=== PATIENT | female | born 1985 | race Caucasian/White ===

== ENCOUNTER 2019-03-04 16:50 | Emergency (ER) | payer OTHER ==
[~2019-03-04] VITALS: Ht 170.2 cm; Wt 87.8 kg
--- NOTE | 2019-03-04 16:53 | NUR ---
NO ANSWER WHEN PT WAS CALLED FOR TRIAGE @ [id number]
--- NOTE | 2019-03-04 17:53 | NUR ---
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 RESPONDED TO STERNAL RUB, LOCALIZED PAIN. PT MIN ASSISTANCE GETTING INTO W/C. PT TO ROOM VIA W/C
--- NOTE | 2019-03-04 18:04 | NUR ---
PT TAKEN FROM [facility] TO ROOM 25. PER SECURITY PT SLID DOWN TO THE GROUND FROM WHEELCHAIR ON TO SHOULDER. PT APPEARS ANXIOUS. PT REPORTS SHE [facility] AND WAS TOLD SHE HAS STYES IN HER EYES AND SHE HAS BLURRED VISION. VS STABLE. MANAGER PROVIDER RELATIONS ON. DR VALIENTE IN ROOM WITH PATIENT. CALL LIGHT IN PLACE. WILL CONTINUE TO MONITOR.
[2019-03-04 18:32] LABS: BASOPHILS # (AUTO) 0.04 x10^3/uL (0-0.1); BASOPHILS % (AUTO) 1 % (0-1); EOSINOPHILS # (AUTO) 0.67 x10^3/uL (0-0.4); EOSINOPHILS % (AUTO) 8 % (1-7); LYMPHOCYTES # (AUTO) 3.36 x10^3/uL (1-3.4); LYMPHOCYTES % (AUTO) 41 % (22-44); MD NO; MEAN CORPUSCULAR HEMOGLOBIN 32.3 pg (27.0-34.8); MEAN CORPUSCULAR HGB CONC 33.1 g/dL (32.4-35.8); MEAN CORPUSCULAR VOLUME 97.7 fL (80-100); MEAN PLATELET VOLUME 7.3 fL (7.4-10.4); MONOCYTES # (AUTO) 0.46 x10^3/uL (0.2-0.8); MONOCYTES % (AUTO) 6 % (2-9); NEUTROPHILS # (AUTO) 3.57 x10^3/uL (1.8-6.8); NEUTROPHILS % (AUTO) 44 % (42-75); PLATELET COUNT 310 x10^3/uL (130-400); RED BLOOD COUNT 4.31 x10^6/uL (3.82-5.3); RED CELL DISTRIBUTION WIDTH 13.1 % (9.6-15.2)
--- NOTE | 2019-03-04 18:33 | NUR ---
PATIENT TO CT
[2019-03-04 18:39] LABS: ALANINE AMINOTRANSFERASE 19 U/L (12-78); ALBUMIN 3.1 g/dL (3.4-5.0); ANION GAP 7 mmol/L (5-15); CALCIUM 8.2 mg/dL (8.5-10.1); CHLORIDE 114 mmol/L (98-107); CREATININE 0.79 mg/dL (0.55-1.02)
[2019-03-04 18:41] LABS: ALKALINE PHOSPHATASE 55 U/L (45-117); BILIRUBIN,TOTAL 0.3 mg/dL (0.2-1.0); TOTAL PROTEIN 6.8 g/dL (6.4-8.2)
[2019-03-04 19:26] LABS: HCG UR SG 1.026 (1.003-1.030)
--- NOTE | 2019-03-04 19:27 | NUR ---
BREAK RN: PT RESTING WITH NO S/S OF ACUTE DISTRESS. SINUS TACHY 101 ON MONITOR. VSS. PT REQUESTING TO HAVE RE-EVAL WITH ERP. STATES SHE WOULD LIKE SOMEONE TO LOOK AT HER EYES. ERP TO BE UPDATED. AWAITING TEST RESULTS. CALL LIGHT IN REACH.
[2019-03-04 19:39] LABS: AMPHETAMINE SCREEN, URINE Negative (Negative); BARBITURATE SCREEN, URINE Negative (Negative); BENZODIAZEPINE SCREEN, URINE Negative (Negative); CANNABINOID SCREEN, URINE Negative (Negative); COCAINE SCREEN, URINE Negative (Negative); METHADONE SCREEN, URINE Negative (Negative); OPIATE SCREEN, URINE Negative (Negative)
[2019-03-04] MEDS ORDERED: DOXEPIN (19:52)
[2019-03-04] MEDS ORDERED: FLUO40CA9 PO (19:52)
[2019-03-04] MEDS ORDERED: [UNRECOGNIZED DRUG - OTHER] (19:53)
[2019-03-04] MEDS ORDERED: CLON2TAB9 PO (19:53)
[2019-03-04] MEDS ORDERED: WELLBUTRIN (19:53)
--- NOTE | 2019-03-04 19:53 | NUR ---
PT IS MORE ALERT AND REQUESTED TO SPEAK WITH DR VALIENTE. DR VALIENTE HAS UPDATED PATIENT.
[2019-03-04 19:55] VITALS: BP 148/79
--- NOTE | 2019-03-04 20:12 | NUR ---
PT IS A&O X4 AND ABLE TO DRESS SELF. PT IS ABLE TO SAFELY AMBULATE AROUND ROOM. PT DISCHARGED PER DR VALIENTE. PT HAS A RIDE HOME WITH HER .
== END 2019-03-04 20:14 | disposition home or self-care (01) ==
LOC: ED 20:08
DX: H00.021 Hordeolum internum right upper eyelid (principal); F17.200 Nicotine dependence, unspecified, uncomplicated; R51 Headache
CPT/HCPCS: 36415; 70450; 80053; 80307; 81025; 85025; 93005; 99284